=== PATIENT | male | born 1940 | race Hispanic/Latino ===

== ENCOUNTER 2016-05-29 12:15 | Outpatient (CLI) | payer MEDICARE ==
[2016-05-29 13:19] LABS: Blood Urea Nitrogen 9 mg/dL (9-20)
--- NOTE | 2016-05-29 16:34 | Cat Scan Report ---
CT OF THE PELVIS WITH AND WITHOUT IV CONTRAST AND WITH ORAL CONTRAST: FINDINGS: The precontrast study of the pelvis demonstrates no calcifications regional to the tract. The post-contrast study demonstrates no evidence of pelvic adenopathy or abnormal fluid collections. The prostate is markedly enlarged measuring approximately 6.5 x 7.0 cm. No prostatic calcifications are seen. There is marked extrinsic compression of the base of the urinary bladder. I cannot exclude invasion of the bladder wall. There are no suspicious bony abnormalities. IMPRESSION: Large prostatic mass, presumably neoplastic with extrinsic compression and possible invasion of the bladder wall.
== END 2016-05-29 12:16 | disposition home or self-care (01) ==
LOC: CT 12:15
PROVIDERS: ATTEND Urology
DX: N40.1 Benign prostatic hyperplasia with lower urinary tract symptoms (principal); N42.89 Other specified disorders of prostate; R31.0 Gross hematuria
CPT/HCPCS: 36415; 72194; 82565; 84520; Q9967

== ENCOUNTER 2016-06-06 06:57 | Outpatient (CLI) | payer MEDICARE ==
[2016-06-06 07:33] LABS: Blood Urea Nitrogen 15 mg/dL (9-20)
[2016-06-06] MEDS ORDERED: NACL ONE (07:36)
--- NOTE | 2016-06-06 09:20 | Cat Scan Report ---
CT ANGIO ABDOMEN AND PELVIS: HISTORY: Gastrointestinal hemorrhage. TECHNIQUE: Helical CT following IV contrast in 1.25 mm reformatted images. Sagittal and coronal images. Three-dimensional volume rendering technique. Stenosis was determined by NASCET criteria. COMPARISON: None at this facility. FINDINGS: The abdominal aorta, bilateral common iliac arteries, bilateral external iliac arteries and bilateral internal iliac arteries are widely patent with no significant atherosclerotic disease. There is less than 10% stenosis throughout these vessels. Celiac axis, SMA, ZAINAB and dual bilateral renal arteries are widely patent with less than 10% stenosis. There is no evidence for aneurysm or dissection. No site of GI hemorrhage/arterial spurt of contrast is detected in the GI system. The liver, biliary system, pancreas, spleen, kidneys, bowel loops and bladder are unremarkable. 1 cm low density nodule in the right adrenal gland probably represents an adenoma. Normal left adrenal gland. The prostate is enlarged measuring 6.6 x 6.3 x 6.7 cm. IMPRESSION: Essentially normal CT angio of the abdomen or pelvis. No significant atherosclerotic disease is appreciated. Less than 10% stenosis throughout the arterial structures. No site of GI hemorrhage is demonstrated on CTA.
== END 2016-06-06 06:58 | disposition home or self-care (01) ==
LOC: CT 06:57
PROVIDERS: ATTEND Radiology Diagnostic Radiology
DX: K92.2 Gastrointestinal hemorrhage, unspecified (principal); N42.1 Congestion and hemorrhage of prostate; R31.9 Hematuria, unspecified; N40.0 Benign prostatic hyperplasia without lower urinary tract symptoms
CPT/HCPCS: 36415; 74174; 82565; 84520; Q9967

== ENCOUNTER 2016-07-04 06:46 | Day surgery (SDC) | payer MEDICARE ==
[~2016-07-04 06:46] MED LIST: ANCEF/STERILE WATER 2 GM/20 ML 2 GM/20 ML SYRINGE IV NR; NACL 0.9% 1000 ML 1,000 ML IV SCH
[2016-07-04 07:59] LABS: Basophils % (Auto) 0.5 % (0.0-1.8); Eosinophils % (Auto) 6.6 % (0.0-4.3); Hematocrit 38.9 % (35.5-45.6); Hemoglobin 12.8 gm/dl (11.8-15.2); Mean Corpuscular HGB Conc 33 % (32-34); Mean Corpuscular Hemoglobin 28 pg (28-32); Mean Corpuscular Volume 85 fl (84-94); Platelet Count 197 K/mm3 (140-440); Red Blood Count 4.56 M/mm3 (3.65-5.03); Red Cell Distribution Width 14.1 % (13.2-15.2); White Blood Count 5.5 K/mm3 (4.5-11.0)
[2016-07-04] MEDS ORDERED: NACL 0.9% 500 ML 500 ML IV SCH (08:00)
[2016-07-04] MEDS ORDERED: HEPARIN/NS 5000 UNIT/500ML(CATH LAB) 1,000 ML IR ONE (08:06)
[2016-07-04] MEDS ORDERED: BENADRYL ONE (08:06)
[2016-07-04] MEDS ORDERED: XYLOCAINE 2% INFILTRATI ONE (08:07)
[2016-07-04] MEDS ORDERED: ANCEF/STERILE WATER 2 GM/20 ML 2 GM/20 ML SYRINGE IV ONE (08:07)
[2016-07-04] MEDS ORDERED: NACL 0.9% 500 ML 0 ML ONE (08:08)
[2016-07-04 08:10] LABS: INR 1.03 (0.87-1.13)
[2016-07-04 08:11] LABS: Anion Gap 18 mmol/L; BUN/Creatinine Ratio 23.33; Blood Urea Nitrogen 14 mg/dL (9-20); Calcium 8.8 mg/dL (8.4-10.2); Carbon Dioxide 22 mmol/L (22-30); Chloride 104.1 mmol/L (98-107); Glucose 112 mg/dL (75-100); Partial Thromboplastin Time 32.6 Sec. (24.2-36.6); Potassium 4.6 mmol/L (3.6-5.0); Sodium 139 mmol/L (137-145)
[2016-07-04] MEDS: SUBLIMAZE ONE ×4 (08:20→09:48)
[2016-07-04] MEDS: VERSED ONE ×3 (08:36→09:48)
[2016-07-04] MEDS ORDERED: VERSED ONE (10:05)
[2016-07-04] MEDS ORDERED: SUBLIMAZE ONE (10:05)
[2016-07-04] MEDS ORDERED: NITROGLYCERIN SYRINGE 3 ML ONE (10:10)
--- NOTE | 2016-07-04 10:37 | Short Stay Summary ---
Short Stay Documentation Date of service: 07/04/16 - History Principal diagnosis: BPH with bleeding H&P: obtained from office - Allergies and Medications Current Medications: Allergies IV DYE Allergy (Severe, Uncoded 07/04/16 07:08) itching, Swelling Home Medications Medication Instructions Recorded Confirmed Last Taken Type Carvedilol [Coreg] 3.125 mg PO DAILY 06/13/16 07/04/16 07/03/16 History Finasteride [Proscar] 5 mg PO DAILY 06/13/16 07/04/16 07/03/16 History Lisinopril [Zestril TAB] 10 mg PO BID 06/13/16 07/04/16 07/03/16 History Tamsulosin [Flomax] 0.4 mg PO DAILY 06/13/16 07/04/16 07/03/16 History Aspirin [Aspirin BABY CHEW TAB] 81 mg PO QDAY 07/04/16 07/04/16 06/27/16 History Active Medications Cefazolin Sodium (Ancef/Sterile Water 2 Gm/20 Ml) 2 gm in 20 mls @ 80 mls/hr IV PREOP NR PRN Reason: Protocol Stop: 07/04/16 23:59 Last Admin: 07/04/16 08:34 Dose: 20 mls Sodium Chloride (Nacl 0.9% 500 Ml) 500 mls @ 50 mls/hr IV DIRECT ZEYNEP Last Admin: 07/04/16 08:19 Dose: 50 mls/hr - Physical exam General appearance: no acute distress Integumentary: no rash HEENT: Atraumatic Lungs: Normal air movement Breasts: deferred Heart: Regular rate Gastrointestinal: normal Male Genitourinary: deferred Rectal Exam: deferred Extremities: no ischemia, pulses intact Neurological: Normal gait, Normal speech - Brief post op/procedure progress note Date of procedure: 07/04/16 Pre-op diagnosis: Prostatic artrery bleedinhg Post-op diagnosis: same Procedure: Embolization of prostatic artery Anesthesia: local Surgeon: SOURAV RECIO Estimated blood loss: minimal Pathology: none Condition: stable - Disposition Condition at discharge: Good Disposition: DISCHARGED TO HOME OR SELFCARE Short Stay Discharge Plan Activity: advance as tolerated Weight Bearing Status: Weight Bear as Tolerated Diet: regular Wound: keep clean and dry, per your surgeon's advice Follow up with: DAGOBERTO GREGORY MD [Primary Care Provider] - 7 Days
--- NOTE | 2016-07-04 10:44 | Operative Report ---
Operative Report Operative Report: EXAM: PELVIC ANGIOGRAPHY WITH PROSTATIC ARTERY EMBOLIZATION CLINICAL INDICATION: PATIENT WITH A HISTORY OF BPH STATUS POST TURP WHO PRESENTS WITH RECURRENT EPISODES OF BLEEDING FROM THE OPERATIVE BED DATE: 07/04/2016 PROCEDURE: Following an explanation of the risks, benefits and alternatives; written informed consent was obtained. The patient was brought to the injury graphic suite and placed in supine position. Initial ultrasound evaluation of the right groin demonstrated a patent right common femoral artery. The right groin was prepped and draped in the usual sterile fashion. 1% lidocaine was used for anesthesia. Under ultrasound guidance, the right common femoral artery was cannulated with a 7 cm 21-gauge needle. A 0.018 guidewire was advanced centrally under fluoroscopy. The needle was removed and a micro-sheath placed. The 0.018 guidewire was exchanged for a 0.035 guidewire and a micro-sheath exchanged for a 5 Romansh vascular sheath. A 5 Romansh Omni flush catheter was advanced over the guidewire to the aortic bifurcation. Together the guidewire and catheter were used across the bifurcation and digital subtraction angiography performed from the left common iliac artery. This demonstrates origin of the left internal iliac artery with opacification of the anterior posterior divisions. With the Omni flush catheter in the common iliac artery on the left, and Exelon microcatheter and trace PT guidewire were advanced through the Omni flush catheter and used to selectively cannulate the anterior division of the left internal iliac artery. Digital subtraction angiography was performed at this point. This demonstrates a diminutive prostatic vessel supplying only the inferior approximately 5% of the prosthetic bed. Multiple views were obtained. No additional prosthetic arteries are identified on the left. The microcatheter and guidewire were removed and the Omni flush catheter advanced to the aortic bifurcation. A 0.035 guidewire was then used to draw the Omni flush catheter into the right common iliac artery. Digital subtraction angiography was performed at this point. This demonstrates origin of the right internal iliac artery with prompt opacification of anterior posterior divisions. The initial on catheter and microguidewire were used to selectively cannulate the anterior division and additional angiography demonstrates the origin of an enlarged re-extending towards the 8. Selective cannulation of the prostatic artery was then performed using the Ethilon microcatheter and short PT guidewire. Once inside the lumen of the prostatic artery, additional digital subtraction angiography was performed which demonstrates opacification of the prostate of. At this point in the case , the patient's bladder was opacified with contrast demarcating the prostate very well. The microcatheter and guidewire were then advanced distally to just proximal to the prostate. At this point, embolization was performed. 2 2 mm x 4 cm Concerto coils were deployed in the prostatic. Postembolization imaging demonstrated no flow passed the coils and at this point, the procedure was concluded. The microcatheter, guidewires and catheters were removed. Sheath was removed and hemostasis achieved in the right groin using an Angio-Seal arterial closure device. Sterile dressings were then applied. Conscious sedation was performed under the guidance of radiologic nursing. Continuous cardiopulmonary monitoring was utilized. IMPRESSION: 1) Pelvic angiography with embolization of the right prostatic artery as described. The left prosthetic artery is diminutive and supplies less than 5% of the prosthetic bed.
[2016-07-04 13:26] VITALS: BP 102/60
--- NOTE | 2016-07-07 14:22 | Vascular Lab Report ---
MISCELLANEOUS VESSEL IDENTIFICATION: COMMENTS ON THE SCAN: The right common femoral artery was identified and under real-time ultrasound guidance was cannulated. IMPRESSION: Successful ultrasound guided arterial cannulation.
== END 2016-07-04 12:50 | disposition home or self-care (01) ==
LOC: OPU 06:46
PROVIDERS: ATTEND Radiology Diagnostic Radiology
DX: N42.1 Congestion and hemorrhage of prostate (principal); I25.10 Atherosclerotic heart disease of native coronary artery without angina pectoris; I25.2 Old myocardial infarction; E78.00 Pure hypercholesterolemia, unspecified; F17.210 Nicotine dependence, cigarettes, uncomplicated; Z98.890 Other specified postprocedural states; Z82.49 Family history of ischemic heart disease and other diseases of the circulatory system; Z83.3 Family history of diabetes mellitus; Z80.9 Family history of malignant neoplasm, unspecified; Z79.899 Other long term (current) drug therapy
CPT/HCPCS: 36247; 36415; 37244; 75710; 75736; 76937; 80048; 85025; 85610; 85730; C1760; C1769; C1887; J0690; J1200; J1644; J2250; J2930; J3010; J7040; Q9967; 37242